=== PATIENT | male | born 1970 | race Caucasian/White ===

== ENCOUNTER 2017-12-01 07:01 | Emergency (ER) | payer BC, OTHER ==
[2017-12-01 07:08] VITALS: BP 123/81
--- NOTE | 2017-12-01 07:29 | ER Document Report ---
ED General - General Chief Complaint: Nausea/Vomiting/Diarrhea Stated Complaint: VOMITING Time Seen by Provider: 12/01/17 07:17 TRAVEL OUTSIDE OF THE [place] IN LAST 30 DAYS: No - HPI Notes: Patient is a 47-year-old male with no significant past medical history who presents to the ED complaining of intermittent vomiting/diarrhea 2 days. Patient states that his symptoms started around lunchtime on Friday and he began having abdominal cramping with vomiting and diarrhea. Patient states that since then he has had continued intermittent symptoms. He vomited approximately 7 times yesterday and had about 7 loose stools yesterday as well. Patient states that his loose stools are watery. Patient states that he is still trying to eat and drink, but does have a decreased p.o. intake. He has not taken any medications for his symptoms. Patient states he has at rest he does not have any sharp abdominal pains. He denies any travel, new foods, new medications, recent illness, or insect bite. Denies any headache, fever, neck pain, URI, sore throat, chest pain, palpitations, syncope, cough, shortness of breath, wheeze, dyspnea, urinary retention, dysuria, hematuria, back pain, loss of control of bowel or bladder, numbness/tingling, saddle anesthesia, muscle paralysis/weakness, or rash. - Related Data Allergies/Adverse Reactions: ciprofloxacin [From Cipro] Allergy (Verified 12/01/17 07:08) Past Medical History - Social History Smoking Status: Unknown if Ever Smoked Family History: Reviewed & Not Pertinent Review of Systems - Review of Systems -: Yes All other systems reviewed and negative Physical Exam - Vital signs Vitals: Temp Pulse Resp BP Pulse Ox 97.6 F 94 17 123/81 96 12/01/17 07:07 12/01/17 07:07 12/01/17 07:07 12/01/17 07:07 12/01/17 07:07 - Notes Notes: PHYSICAL EXAMINATION: GENERAL: Well-appearing, well-nourished and in no acute distress. A&Ox4. Answers questions appropriately. Appears comfortable. HEAD: Atraumatic, normocephalic. EYES: Pupils equal round and reactive to light, extraocular movements intact, sclera anicteric, conjunctiva are normal. ENT: Nares patent and without discharge. oropharynx clear without exudates. No tonsilar hypertrophy or erythema. Moist mucous membranes. NECK: Normal range of motion, supple without lymphadenopathy LUNGS: Breath sounds clear to auscultation bilaterally and equal. No wheezes rales or rhonchi. HEART: Regular rate and rhythm without murmurs, rubs, gallops. ABDOMEN: Soft, nontender, nondistended abdomen. No guarding, no rebound. No masses appreciated. Normal bowel sounds present. No CVA tenderness bilaterally. Musculoskeletal: FROM to passive/active. Strength 5+/5. Extremities: No cyanosis, clubbing, or edema b/l. Peripheral pulses 2+. Capillary refill less than 3 seconds. NEUROLOGICAL: Cranial nerves grossly intact. Normal speech, normal gait. Normal sensory, motor exams PSYCH: Normal mood, normal affect. SKIN: Warm, Dry, normal turgor, no rashes or lesions noted. Course - Re-evaluation Re-evalutation: 12/01/17 09:06 Patient is an afebrile, well-hydrated, 47-year-old male who presents to the ED with gastroenteritis. Vitals are acceptable. PE is otherwise unremarkable. Patient's abdomen was soft and nontender. CBC showed a mildly elevated white count, but patient has been vomiting. CMP and lipase were unremarkable for any acute pathology. No other labs or imaging warranted at this time based on H&P. Patient is able to tolerate p.o. at this time. Patient was given Zofran and 2 L of normal saline. Low suspicion/risk for acute appendicitis, bowel obstruction, acute cholecystitis, perforated diverticulitis, incarcerated hernia , pancreatitis, perforated ulcer, peritonitis, sepsis, testicular torsion, or other systemic emergent condition at this time. Patient is aware that his condition can change from initial presentation and he needs to monitor symptoms closely and seek medical attention if any acute changes. I will send him home with a prescription for Zofran and loperamide. Conservative measures otherwise for symptoms. Recheck with PCM in 2-3 days. Consider consult with a alarm installation technician. Return to the ED with any worsening/concerning symptoms otherwise as reviewed in discharge. Patient is in agreement. - Vital Signs Vital signs: Temp Pulse Resp BP Pulse Ox 97.6 F 94 17 123/81 96 12/01/17 07:07 12/01/17 07:07 12/01/17 07:07 12/01/17 07:07 12/01/17 07:07 - Laboratory Result Diagrams: 12/01/17 07:30 12/01/17 07:30 Laboratory results interpreted by me: 12/01/17 12/01/17 07:30 07:30 WBC 10.7 H RBC 5.77 H Seg Neutrophils % 78.1 H Lymphocytes % 9.4 L Absolute Neutrophils 8.4 H BUN 22 H Glucose 187 H Direct Bilirubin 0.5 H Discharge - Discharge Clinical Impression: Acute gastroenteritis Condition: Stable Disposition: HOME, SELF-CARE Instructions: Antinausea Medication ([facility]), Diarrhea, Nonspecific ([facility]), Gastroenteritis (adult) ([facility]), OTC Antidiarrhea Medication ([facility]), Vomiting ([facility]) Additional Instructions: Maintain adequate fluid and food intake [place] diet ([employer] Bananas, rice, apples, toast, etc Zofran as needed tylenol if needed Monitor for any worsening symptoms Make sure you are staying hydrated enough to urinate and have normal BM's Recheck with your PCM in 2-3 days Consider consult with Gastroenterology for ongoing/worsening symptoms Return to the ED with any worsening symptoms and/or development of fever, headache, chest pain, palpitations, syncope, shortness of breath, trouble breathing, abdominal pain, n/v/d, blood in stool/urine, weakness, or other worsening symptoms that are concerning to you. Prescriptions: Loperamide HCl [Imodium 2 mg Capsule] 2 mg PO PRN PRN #21 cap PRN Reason: Ondansetron [Zofran Odt 4 mg Tablet] 1 - 2 tab PO Q4H PRN #15 tab.rapdis PRN Reason: For Nausea/Vomiting Forms: Return to Work Referrals: APRIL LLOYD MD [ACTIVE STAFF] - Follow up as needed JOMAR COMBS MD [ACTIVE STAFF] - Follow up as needed
[2017-12-01] MEDS: NORMAL SALINE 1000 ML 1,000 ML IV PRN ×2 (07:37→08:04)
[2017-12-01 08:02] LABS: ABSOLUTE EOSINOPHILS # (AUTO) 0.1 10^3/uL (0.0-0.6); ABSOLUTE MONOCYTES (AUTO) 1.2 10^3/uL (0.1-1.4); ABSOLUTE NEUT (AUTO) 8.4 10^3/uL (1.7-8.2); BASOPHILS % (AUTO) 0.2 % (0-2); EOSINOPHILS % (AUTO) 1.2 % (0-6); HEMATOCRIT 49.6 % (37.9-51.0); HEMOGLOBIN 16.8 g/dL (13.5-17.0); LYMPHOCYTES % (AUTO) 9.4 % (13-45); MEAN CORPUSCULAR HGB CONC 33.8 g/dL (32.0-36.0); MEAN CORPUSCULAR VOLUME 86 fl (80-97); MONOCYTES % (AUTO) 11.1 % (3-13); PLATELET COUNT 206 10^3/uL (150-450); RED BLOOD COUNT 5.77 10^6/uL (4.35-5.55); RED CELL DISTRIBUTION WIDTH 13.9 % (11.5-14.0); SEGMENTED NEUTROPHILS % (AUTO) 78.1 % (42-78); TOTAL CELLS COUNTED % (AUTO) 100 %; WHITE BLOOD COUNT 10.7 10^3/uL (4.0-10.5)
[2017-12-01] MEDS ORDERED: ONDANSETRON HCL INJ/PF 4 MG/2 ML SDV IV ONE (08:07)
[2017-12-01 08:19] LABS: ALANINE AMINOTRANSFERASE 47 U/L (21-72); ALBUMIN 4.2 g/dL (3.5-5.0); ALKALINE PHOSPHATASE 65 U/L (38-126); ANION GAP 13 (5-19); ASPARTATE AMINO TRANSFERASE 29 U/L (17-59); BILIRUBIN,DIRECT 0.5 mg/dL (0.0-0.4); BILIRUBIN,TOTAL 0.6 mg/dL (0.2-1.3); BLOOD UREA NITROGEN 22 mg/dL (7-20); CALCIUM 9.5 mg/dL (8.4-10.2); CARBON DIOXIDE 24 mmol/L (22-30); CHLORIDE 102 mmol/L (98-107); GLUCOSE 187 mg/dL (75-110); LIPASE 132.6 U/L (23-300); POTASSIUM 3.8 mmol/L (3.6-5.0); SODIUM 138.6 mmol/L (137-145); TOTAL PROTEIN 7.5 g/dL (6.3-8.2)
== END 2017-12-01 09:53 | disposition home or self-care (01) ==
LOC: ER 07:01
DX: K52.9 Noninfective gastroenteritis and colitis, unspecified (principal); R11.2 Nausea with vomiting, unspecified; R10.9 Unspecified abdominal pain; Z88.1 Allergy status to other antibiotic agents
CPT/HCPCS: 99284; 96361; 96374; 36415; 83690; 85025; 80053; J2405; J7030

== ENCOUNTER 2017-12-03 11:48 | Emergency (ER) | payer BC ==
[2017-12-03] MEDS ORDERED: [UNRECOGNIZED DRUG - OTHER] PO ONE (13:21)
[2017-12-03] MEDS ORDERED: ALUMINUM HYDROX PO ONE (13:21)
[2017-12-03] MEDS ORDERED: METOCLOPRAMIDE HCL INJ/PF 10 MG/2 ML SDV IV ONE (13:21)
[2017-12-03] MEDS ORDERED: DIPHENHYDRAMINE HCL 50 MG/ML VIAL IV ONE (13:21)
[2017-12-03] MEDS: NORMAL SALINE 1000 ML 2,000 ML IV PRN ×2 (13:55→14:03)
[2017-12-03 14:07] LABS: ABSOLUTE EOSINOPHILS # (AUTO) 0.1 10^3/uL (0.0-0.6); ABSOLUTE LYMPHOCYTES (AUTO) 1.7 10^3/uL (0.5-4.7); ABSOLUTE NEUT (AUTO) 3.3 10^3/uL (1.7-8.2); BASOPHILS % (AUTO) 0.3 % (0-2); EOSINOPHILS % (AUTO) 2.1 % (0-6); HEMATOCRIT 41.3 % (37.9-51.0); MEAN CORPUSCULAR HEMOGLOBIN 29.1 pg (27.0-33.4); MEAN CORPUSCULAR HGB CONC 33.8 g/dL (32.0-36.0); MEAN CORPUSCULAR VOLUME 86 fl (80-97); MONOCYTES % (AUTO) 15.8 % (3-13); PLATELET COUNT 181 10^3/uL (150-450); RED CELL DISTRIBUTION WIDTH 13.6 % (11.5-14.0); SEGMENTED NEUTROPHILS % (AUTO) 53.8 % (42-78); TOTAL CELLS COUNTED % (AUTO) 100 %; WHITE BLOOD COUNT 6.1 10^3/uL (4.0-10.5)
[2017-12-03 14:22] LABS: ALANINE AMINOTRANSFERASE 50 U/L (21-72); ALBUMIN 3.4 g/dL (3.5-5.0); ALKALINE PHOSPHATASE 41 U/L (38-126); ANION GAP 8 (5-19); ASPARTATE AMINO TRANSFERASE 28 U/L (17-59); BILIRUBIN,DIRECT 0.4 mg/dL (0.0-0.4); BILIRUBIN,TOTAL 0.6 mg/dL (0.2-1.3); BLOOD UREA NITROGEN 13 mg/dL (7-20); CALCIUM 8.6 mg/dL (8.4-10.2); CARBON DIOXIDE 26 mmol/L (22-30); CHLORIDE 103 mmol/L (98-107); GLUCOSE 101 mg/dL (75-110); LIPASE 84.7 U/L (23-300); POTASSIUM 3.7 mmol/L (3.6-5.0); SODIUM 137.1 mmol/L (137-145); TOTAL PROTEIN 6.3 g/dL (6.3-8.2)
--- NOTE | 2017-12-03 14:37 | ER Document Report ---
ED GI/ - General Chief Complaint: Vomiting/Diarrhea Stated Complaint: VOMITING,DIARRHEA Time Seen by Provider: 12/03/17 13:07 Notes: It is a 47-year-old obese male presenting to the emergency department complaining of persistent nausea and vomiting, diarrhea, abdominal cramping 5 days. Patient was seen in the ED 2 days ago for same complaints. Received IV fluids and antinausea medications. Patient reports his symptoms are persistent through the medications. Reports he is unable to tolerate any p.o.'s at this time. No fever. TRAVEL OUTSIDE OF THE [place] IN LAST 30 DAYS: No - HPI Patient complains to provider of: Abdominal pain, Diarrhea, Vomiting Timing/Duration: Persistent Quality of pain: Cramping Location: Other - Generalized abdominal pain Associated symptoms: Diarrhea, Vomiting Exacerbated by: Denies Relieved by: Denies Similar symptoms previously: Yes Recently seen / treated by doctor: Yes - Related Data Allergies/Adverse Reactions: ciprofloxacin [From Cipro] Allergy (Verified 12/01/17 07:08) Past Medical History - General Information source: Patient - Social History Smoking Status: Former Smoker Frequency of alcohol use: None Drug Abuse: None Family History: Reviewed & Not Pertinent Patient has suicidal ideation: No Patient has homicidal ideation: No Renal/ Medical History: Denies: Hx Peritoneal Dialysis GI Medical History: Reports: Hx Ulcer Psychiatric Medical History: Reports: Hx Attention Deficit Hyperactivity Disorder, Hx Depression Review of Systems - Review of Systems Constitutional: No symptoms reported EENT: No symptoms reported Cardiovascular: No symptoms reported Respiratory: No symptoms reported Gastrointestinal: See HPI Genitourinary: No symptoms reported Male Genitourinary: No symptoms reported Musculoskeletal: No symptoms reported Skin: No symptoms reported Hematologic/Lymphatic: No symptoms reported Neurological/Psychological: No symptoms reported Physical Exam - Vital signs Vitals: Temp Pulse Resp BP Pulse Ox 97.5 F 77 20 121/66 95 12/03/17 11:59 12/03/17 11:59 12/03/17 11:59 12/03/17 11:59 12/03/17 11:59 Interpretation: Normal - General General appearance: Appears well, Alert - HEENT Head: Normocephalic, Atraumatic Eyes: Normal Pupils: PERRL - Respiratory Respiratory status: No respiratory distress Chest status: Nontender Breath sounds: Normal Chest palpation: Normal - Cardiovascular Rhythm: Regular Heart sounds: Normal auscultation Murmur: No - Abdominal Inspection: Normal Distension: No distension Bowel sounds: Normal Tenderness: Tender - Generalized. No: Guarding, Rebound Organomegaly: No organomegaly - Back Back: Normal, Nontender - Extremities General upper extremity: Normal inspection, Nontender, Normal color, Normal ROM , Normal temperature General lower extremity: Normal inspection, Nontender, Normal color, Normal ROM , Normal temperature, Normal weight bearing. No: Allie's sign - Neurological Neuro grossly intact: Yes Cognition: Normal Orientation: AAOx4 [place] Coma Scale Eye Opening: Spontaneous [place] Coma Scale Verbal: Oriented [place] Coma Scale Motor: Obeys Commands [place] Coma Scale Total: 15 Speech: Normal Motor strength normal: LUE, RUE, LLE, RLE Sensory: Normal - Psychological Associated symptoms: Normal affect, Normal mood - Skin Skin Temperature: Warm Skin Moisture: Dry Skin Color: Normal Course - Re-evaluation Re-evalutation: 12/03/17 14:41 After performing a Medical Screening Examination, I estimate there is LOW risk for ACUTE APPENDICITIS, BOWEL OBSTRUCTION, ACUTE CHOLECYSTITIS, PERFORATED DIVERTICULITIS, INCARCERATED HERNIA, PANCREATITIS, TESTICULAR TORSION or PERFORATED ULCER, thus I consider the discharge disposition reasonable. Also, there is no evidence or peritonitis, sepsis, or toxicity. I have reevaluated this patient multiple times and no significant life threatening changes are noted. The patient and I have discussed the diagnosis and risks, and we agree with discharging home with close follow-up with the understanding that symptoms and presentations can change. We also discussed returning to the Emergency Department immediately if new or worsening symptoms occur. We have discussed the symptoms which are most concerning (e.g., bloody stool, fever, changing or worsening pain, intractable vomiting - standard verbal up date) that necessitate immediate return. 12/03/17 16:12 Labs are unremarkable. All results reviewed with patient. Patient reports that he is feeling better after IV fluids and medications. Patient able to tolerate p.o.'s here in the emergency department. No active vomiting. Stable for discharge - Vital Signs Vital signs: Temp Pulse Resp BP Pulse Ox 97.5 F 77 20 121/66 95 12/03/17 11:59 12/03/17 11:59 12/03/17 11:59 12/03/17 11:59 12/03/17 11:59 - Laboratory Result Diagrams: 12/03/17 13:49 12/03/17 13:49 Laboratory results interpreted by me: 12/03/17 12/03/17 13:49 13:49 Monocytes % 15.8 H Albumin 3.4 L Discharge - Discharge Clinical Impression: Gastroenteritis Condition: Stable Disposition: HOME, SELF-CARE Instructions: Prescribed Antidiarrhea Medications ([facility]), Antinausea Medication ([facility]), Clear Liquid Diet ([facility]), Diarrhea, Nonspecific ([facility]), Gastroenteritis ( adult) ([facility]), Intravenous (IV) Fluids ([facility]) Additional Instructions: Your labs were normal today. Symptoms are most likely caused by a viral gastrointestinal illness. Take antinausea medicine and antidiarrheal medications as prescribed. Recommend [id number] Gaviscon for abdominal discomfort Recommend gut rest, clear liquids for the next 24 hours and advance diet slowly as tolerated Follow-up with primary care provider if symptoms persist Return to ER for any worsening Prescriptions: Diphenoxylate HCl/Atrop Sulf [Lomotil 2.5 mg Tablet] 1 tab PO Q6HP PRN #10 tablet PRN Reason: Promethazine HCl [Phenergan 25 mg Tablet] 25 mg PO Q6H PRN #15 tablet PRN Reason: Forms: Return to Work
[2017-12-03 16:07] LABS: APPEARANCE,URINE CLEAR; BILIRUBIN,URINE NEGATIVE (NEGATIVE); COLOR,URINE YELLOW; GLUCOSE, URINE NEGATIVE (NEGATIVE); KETONES,URINE TRACE mg/dL (NEGATIVE); LEUKOCYTE ESTERASE,URINE NEGATIVE (NEGATIVE); NITRITE,URINE NEGATIVE (NEGATIVE); PROTEIN,URINE NEGATIVE (NEGATIVE); URINE SPECIFIC GRAVITY 1.008; UROBILINOGEN,URINE NEGATIVE mg/dL (<2.0)
[2017-12-03 16:38] VITALS: BP 127/67
== END 2017-12-03 16:38 | disposition home or self-care (01) ==
LOC: ER 11:48
DX: K52.9 Noninfective gastroenteritis and colitis, unspecified (principal); R11.2 Nausea with vomiting, unspecified; R10.84 Generalized abdominal pain; Z87.891 Personal history of nicotine dependence
CPT/HCPCS: 99284; 36415; 83690; 85025; 80053; 81001; J1200; J3490; J2765; J7030